=== PATIENT | female | born 1965 | race Caucasian/White ===

== ENCOUNTER 2021-10-22 09:25 | Day surgery (SDC) | payer OTHER, SELFPAY ==
[2021-10-22] VITALS (9 sets, daily range): BP systolic 120–142; BP diastolic 72–89; PULSE 70–94; RESP 15–18; TEMP 36.1–36.6; O2SAT 94–100; BMI 31.0
[2021-10-22 10:09] LABS: Internal QC Validated? YES +Cl - CLEAR BKGD
[2021-10-22] MEDS: Lactated Ringers 1,000 ML 15 ML IV (10:10)
[2021-10-22] MEDS: Acetaminophen 500 MG Tablet 1000 MG PO (10:11)
[2021-10-22] MEDS: Celecoxib 200 MG Capsule 400 MG PO (10:12)
[2021-10-22 10:14] LABS: Pregnancy, Urine Negative Negative
[2021-10-22 10:19] LABS: Hematocrit 44.3 % (37-47); Hemoglobin 14.4 g/dL (12.0-15.0); Mean Corp Hgb Conc 32.5 g/dL (32-36); Mean Corpuscular Hgb 28.6 pg (27.0-32.0); Mean Corpuscular Volume 88.1 fL (81-99); Mean Platelet Vol. 9.2 fl (6.2-12.0); Platelet Count 311 K/mm3 (150-450); RBC Distribution Width CV 13.1 % (11.6-14.6); Red Blood Count 5.03 M/mm3 (4.2-5.4); White Blood Count 5.8 K/mm3 (4.4-11.0)
[2021-10-22] MEDS: Lidocaine 1% (20 ml mdv) 20 ML Vial (11:13)
--- NOTE | 2021-10-22 11:32 | PCM.OPRPT ---
Problems Associated Problem List Diagnoses (1) Abnormal uterine bleeding (AUB): (2) Endometrial polyp: Report of Operation Date of Procedure: 10/22/21 Pre-Operative Diagnosis: aub, endometrial polyp Post-Operative Diagnosis: same Surgery/Procedure Performed:: Hysteroscopy with endometrial polyp resection Description of Surgical Findings:: normal nedometrium with small polyp in lower uterine segment Surgeon: Berenice Reis disk and tape machine tender: [email or web address] Type of Anesthesia: MAC/Supplemental/Local Anesthesiologist: Escobar Nixon Special Medications: none Specimen's removed: endometrial curettings/polyp Drains: none Estimated Blood Loss (mL): 10 Fluids Replaced: 300 Description of Procedure: The patient was taken to the OR where she was prepped and draped in dorsal lithotomy position. The weighted speculum was placed in the vagina and the anterior lip of the cervix was grasped with a single-tooth tenaculum. A paracervical block was administered with 1% lidocaine without epinephrine because epinephrine was not available. The ParaGard IUD was removed and placed on the sterile field. The cervix was dilated serially with Hegar dilators. The Symphion hysteroscope was placed into the uterine cavity and the above findings were noted. Bilateral tubal ostia [were] identified. The symphion resection device was readied and inserted. The polyp was shaved out. The ParaGard IUD was replaced into the endometrial cavity. The instruments were removed from the vagina. The specimen was handed off and sent to pathology. All sponge and needle counts were correct. Vaginal sweep was performed by me. The patient was awakened and taken to the recovery room in stable condition. The calculated hysteroscopic fluid deficit was 400 cc of normal saline. Grafts/Implants Used: none Procedure Start Time: 10:26 Procedure Stop Time: 10:39 Complications none Admit VTE Documentation VTE Present on Admission: No VTE Mechan Device Prophylaxis: SCD's VTE Pharm Prophylaxis ordered?: No Reason prophylaxis not ordered:: Procedure Not Indicated
--- NOTE | 2021-10-22 12:27 | EMB_PTH ---
PATIENT: RICK NIETO [place] [facility] [id number] AGE/SX: 56/F ROOM: RE10/22/[address]: Dr. Berenice Reis MD : [id number] BED: DIS: 10/22/2021 SPEC #: [id number] RECD: 10/22/21 12:27 STATUS: ABHILASH AUGUSTINE #: [id number] MAYTE: 10/22/21 12:[address]: Berenice Reis DEPT: SURGICAL PATHOLOGY RECD BY: Kerri Whyte ENTERED: 10/22/21 12:55 SP TYPE: ENDOM BX/C BRISEYDA DR: Dr. Ochoa Serrano MD Tissues: Endometrium, NOS Procedures: Surgery Specimen Level IV HEADER OPERATION: Hysteroscopy with polypectomy, Symphion PRE-OP DIAGNOSIS: Abnormal uterine bleeding, endometrial polyp TISSUE SUBMITTED: Endometrial tissue and polyp MICROSCOPIC DIAGNOSIS Endometrial tissue and polyp, biopsy: Polypoid fragments of benign weakly proliferative endometrium and myometrium. Rare fragments of superficial endocervix. See comment. AM:nancie 10/23/2021 COMMENT Focal changes of adenomyosis/adenomyoma are noted. Clinical correlation is suggested. MICROSCOPIC DESCRIPTION Slides are reviewed. GROSS DESCRIPTION Received in fixative is one container labeled with the patient's name and designated endometrial tissue and polyp. The specimen consists of multiple irregular fragments of light barboza soft tissue that in aggregate measure 2.5 x 1.5 x 0.2 cm. The specimen is totally submitted in one cassette. / SJ:nancie 10/22/2021 TC:5 CPT: 70263
--- NOTE | 2021-10-22 12:55 | PCM.DC ---
Discharge Instructions Diet Discharge Diet: No restrictions Activity Discharge Activity: May Shower and May Take a Tub Bath (in 1 week) May resume sexual activity in: 1-2 weeks and 1 week Dressing / Incision Call your doctor if your incision/area has: Sudden Increased Bleeding and Foul Smelling Discharge Call your doctor if you observe: Fever of 101 or Higher Follow Up Care Please Follow Up With: Berenice Reis MD When: As needed only. Call if concerns or problems. You do not need a postop visit if you are doing well. Test Results: Test results from this visit will be discussed in further detail at your follow-up appointment, if applicable. Discharge Plan Admission Primary Reason for Your Visit: Uterine polyp removal Attending Provider: Berenice Reis Primary Care Provider: Ochoa Serrano Instructions Additional Instructions / Restrictions: Take acetaminophen and or ibuprofen or naproxyn as needed for pain control Discharge Orders/Prescriptions Prescriptions: No Action magnesium 500 mg Tablet 500 mg PO DAILY RF: 0 Botox 100 unit Recon Soln 100 unit intradermal PRN PRN (Reason: MIGRAINES) RF: 0 almotriptan malate 12.5 mg Tablet 12.5 mg PO Q2H PRN (Reason: MIGRAINES) RF: 0 Zyrtec 10 mg Capsule 10 mg PO DAILY RF: 0 Qvar RediHaler 80 mcg/actuation Hfa Aerosol Breath Activated 2 inh INHALATION Q12H RF: 0 albuterol 90 mcg/actuation Aerosol 90 mcg INHALATION PRN PRN (Reason: ASTHMA) RF: 0 Referrals / Follow Up: Ochoa Serrano MD [Primary Care Provider] - Disposition Disposition (needs filled in before D/C Order can be placed): Home, Self Care
== END 2021-10-22 23:59 | disposition home or self-care (01) ==
LOC: SDC 09:33 → AC 09:34
PROVIDERS: PCP Family Medicine; Referring Provider Obstetrics & Gynecology; Visit Provider Obstetrics & Gynecology
PROC: 0UB98ZZ Excision of Uterus, Via Natural or Artificial Opening Endoscopic (ICD-10-PCS; CPT 58558; principal; 2021-10-22 10:50)
DX: N84.0 Polyp of corpus uteri (principal); N93.9 Abnormal uterine and vaginal bleeding, unspecified; J45.909 Unspecified asthma, uncomplicated; Z30.433 Encounter for removal and reinsertion of intrauterine contraceptive device
CPT/HCPCS: 58558; 58300; 58301; 81025; 85027; 88305; J7120; J2405